=== PATIENT | female | born 2000 | race Caucasian/White ===

== ENCOUNTER 2022-06-13 09:50 | Inpatient (IN) | payer OTHER ==
[2022-06-13] MEDS ORDERED: PROMETHAZINE HCL 25 MG/1 ML VIAL IVPUSH PRN (13:19)
[2022-06-13] MEDS ORDERED: BUTORPHANOL TARTRATE 1 MG/ML VIAL IVPB PRN (13:19)
[2022-06-13 14:45] VITALS: BMI 28.1
[2022-06-13 14:56] LABS: BASO % 0.1 % (0-2.0); EOS % 0.1 % (0-4.5); HEMATOCRIT 39.2 % (32.4-45.2); HEMOGLOBIN 13.2 GM/dL (10.7-15.3); LYMPH % 11.8 % (8-40); MCH 30.5 pg (25.7-33.7); MCHC 33.7 g/dl (32.0-36.0); MEAN CELL VOLUME 90.5 fl (80-96); MEAN PLT VOLUME 9.4 fl (7.5-11.1); MONO % 5.4 % (3.8-10.2); NEUT % 82.6 % (42.8-82.8); PLATELET COUNT 184 10^3/uL (134-434); RBC 4.33 M/mm3 (3.60-5.2); RDW 13.5 % (11.6-15.6); WHITE BLOOD COUNT 9.4 K/mm3 (4.0-10.0)
[2022-06-13 15:03] LABS: INR 0.87 (0.83-1.09)
[2022-06-13 15:06] LABS: ACTIVATED PTT 30.5 SECONDS (25.2-36.5)
[2022-06-13] MEDS: ELECTROLYTE-148 SOLN 1,000 ML IV SCH (16:00)
[2022-06-13] MEDS ORDERED: BUTORPHANOL TARTRATE 2 MG/ML VIAL ONE (18:24)
[2022-06-13] MEDS ORDERED: PROMETHAZINE HCL 25 MG/1 ML VIAL ONE (18:25)
[2022-06-14] MEDS ORDERED: FENTANYL/BUPIVACAINE/NS/PF - PCEA - 50 ML DISP.SYRIN EP ONE ×3 (00:08→09:33)
[2022-06-14] MEDS ORDERED: NALOXONE HCL 0.4 MG/ML VIAL IVPUSH PRN (00:13)
[2022-06-14] MEDS ORDERED: BUPIVACAINE HCL/PF 0.25% (2.5MG/ML) 10 ML VIAL ONE (00:18)
[2022-06-14] MEDS: FENTANYL/BUPIVACAINE/NS/PF - PCEA - 50 ML DISP.SYRIN EP SCH ×2 (00:45→05:30)
[2022-06-14] MEDS: ELECTROLYTE-148 SOLN 1,000 ML IV SCH (04:30)
[2022-06-14 07:31] LABS: CALCIUM 8.4 mg/dL (8.5-10.1)
[2022-06-14 07:34] LABS: CREATININE 0.6 mg/dL (0.55-1.3)
[2022-06-14] MEDS ORDERED: OXYTOCIN 30 UNITS in 0.9% NS 30 UNIT/500 ML INFUS.BAG IVPB ONE (07:58)
[2022-06-14] MEDS ORDERED: OXYTOCIN 30 UNITS in 0.9% NS 30 UNIT/500 ML INFUS.BAG IVPB SCH (09:00)
[2022-06-14] MEDS ORDERED: OXYTOCIN 20 UNITS in 0.9% NS 20 UNIT/1,000 ML INFUS.BAG IV ONE (10:09)
[2022-06-14] MEDS ORDERED: WITCH HAZEL 50% (TUCKS) 40 PAD/JAR PAD TP PRN (11:37)
[2022-06-14] MEDS ORDERED: METHYLERGONOVINE MALEATE 0.2 MG/1 ML AMP IM PRN (11:37)
[2022-06-14] MEDS ORDERED: oxyCODONE HCL 5 MG TABLET PO PRN (11:37)
[2022-06-14] MEDS ORDERED: BENZOCAINE 28 GM HEMORRHOIDAL OINTMENT TP PRN (11:37)
[2022-06-14] MEDS ORDERED: BENZOCAINE 20% 57 GM BOTTLE TP PRN (11:37)
[2022-06-14] MEDS ORDERED: BISACODYL 10 MG SUPP.RECT RC PRN (11:37)
[2022-06-14] MEDS ORDERED: OXYTOCIN 20 UNITS in 0.9% NS 20 UNIT/1,000 ML INFUS.BAG IV SCH (11:45)
[2022-06-14] MEDS: FERROUS SO4 325 MG TABLET (FP) PO SCH ×2 (12:56→18:36)
[2022-06-14] MEDS: IBUPROFEN 600 MG TABLET (FP) PO PRN ×2 (14:56→20:49)
[2022-06-15 07:13] LABS: BASO % 0.1 % (0-2.0); EOS % 1.3 % (0-4.5); HEMATOCRIT 31.8 % (32.4-45.2); HEMOGLOBIN 10.7 GM/dL (10.7-15.3); LYMPH % 14.9 % (8-40); MCH 30.4 pg (25.7-33.7); MCHC 33.7 g/dl (32.0-36.0); MEAN PLT VOLUME 9.8 fl (7.5-11.1); NEUT % 76.7 % (42.8-82.8); PLATELET COUNT 147 10^3/uL (134-434); RBC 3.53 M/mm3 (3.60-5.2); RDW 13.8 % (11.6-15.6); WHITE BLOOD COUNT 10.6 K/mm3 (4.0-10.0)
[2022-06-15] MEDS: FERROUS SO4 325 MG TABLET (FP) PO SCH ×3 (08:12→17:57)
[2022-06-15] MEDS: ACETAMINOPHEN 325 MG TABLET (FP) PO PRN ×3 (08:14→22:01)
[2022-06-15] MEDS: PRENATAL VITAMINS W/ FOLIC ACID TABLET (FP) PO SCH (10:34)
[2022-06-15] MEDS ORDERED: SENNOSIDES/DOCUSATE COMBO (SENNA PLUS) TABLET (UD) PO PRN (22:00)
[2022-06-15 23:18] VITALS: RESP 18
[2022-06-16] MEDS: IBUPROFEN 600 MG TABLET (FP) PO PRN (05:28)
[2022-06-16] MEDS: FERROUS SO4 325 MG TABLET (FP) PO SCH ×2 (08:36→12:40)
[2022-06-16 09:42] VITALS: BP 123/76; PULSE 83; TEMP 98.3
[2022-06-16] MEDS: PRENATAL VITAMINS W/ FOLIC ACID TABLET (FP) PO SCH (10:25)
== END 2022-06-16 14:35 | disposition home or self-care (01) | DRG 560 ==
LOC: JDEL 09:50 → JLDR 13:00 → J3W 06-14 12:30
PROVIDERS: ADMIT Obstetrics & Gynecology; ATTEND Obstetrics & Gynecology
PROC: 0KQM0ZZ Repair Perineum Muscle, Open Approach (ICD-10-PCS; principal; 2022-06-14)
PROC: 10E0XZZ Delivery of Products of Conception, External Approach (ICD-10-PCS; 2022-06-14)
DX: O70.1 Second degree perineal laceration during delivery (principal); Z3A.39 39 weeks gestation of pregnancy; Z37.0 Single live birth
CPT/HCPCS: 36415; 59025; 59409; 80048; 85025; 85610; 85730; 86780; 86850; 86900; 86901; C9803-CS; U0003; U0005

== ENCOUNTER 2024-09-09 13:18 | Emergency (ER) | payer OTHER ==
[2024-09-09 13:31] VITALS: BP 125/81; PULSE 91; RESP 16; TEMP 98.2; BMI 28.5
[2024-09-09 16:18] LABS: EPI CELLS 32 /uL (0-25.1); HYALINE CASTS 1 /uL (0-3.1); PH,URINE 7.5 (5.0-8.0); URINE APPEARANCE TURBID; URINE BACTERIA 1584 /uL (0-1359); URINE BILIRUBIN NEGATIVE (NEGATIVE); URINE COLOR YELLOW; URINE GLUCOSE (UA) NEGATIVE (NEGATIVE); URINE KETONE NEGATIVE (NEGATIVE); URINE LEUK ESTERASE 2+ (NEGATIVE); URINE NITRITE NEGATIVE (NEGATIVE); URINE PROTEIN NEGATIVE (NEGATIVE); URINE UROBILINOGEN 0.2 mg/dL (0.2-1.0); URINE WBC 40 /uL (0-25.8)
[2024-09-09 16:21] LABS: INR 1.04 (0.83-1.09); PROTHROMBIN TIME (PATIENT) 11.9 SEC (9.7-13.0)
[2024-09-09 16:24] LABS: ACTIVATED PTT 32.6 SECONDS (25.2-36.5)
[2024-09-09 16:26] LABS: BASO % 0.3 % (0-2.0); EOS % 0.7 % (0-4.5); HEMATOCRIT 39.6 % (32.4-45.2); HEMOGLOBIN 12.9 GM/dL (10.7-15.3); LYMPH % 24.3 % (8-40); MCH 27.8 pg (25.7-33.7); MCHC 32.6 g/dl (32.0-36.0); MEAN CELL VOLUME 85.2 fl (80-96); MEAN PLT VOLUME 8.5 fl (7.5-11.1); MONO % 6.3 % (3.8-10.2); NEUT % 68.4 % (42.8-82.8); PLATELET COUNT 237 10^3/uL (134-434); RBC 4.65 M/mm3 (3.60-5.2); RDW 14.1 % (11.6-15.6); WHITE BLOOD COUNT 7.9 K/mm3 (4.0-10.0)
[2024-09-09 16:34] LABS: POTASSIUM 4.2 mmol/L (3.5-5.1)
[2024-09-09 16:36] LABS: CALCIUM 9.2 mg/dL (8.5-10.1)
[2024-09-09 16:37] LABS: ALBUMIN 3.6 g/dl (3.4-5.0); BLOOD UREA NITROGEN 9.4 mg/dL (7-18)
[2024-09-09 16:40] LABS: CREATININE 0.5 mg/dL (0.55-1.3)
[2024-09-09 16:41] LABS: BILIRUBIN,TOTAL 0.3 mg/dL (0.2-1); TOT PROT 7.1 g/dl (6.4-8.2)
[2024-09-09 17:34] LABS: URINE RBC 53 /uL (0-23.9)
[2024-09-09 17:35] LABS: URINE CRYSTALS PRESENT /hpf; YEAST NONE SEEN (NEGATIVE)
[2024-09-09 18:10] LABS: HIV INTERPRETATION NEGATIVE (NEGATIVE)
[2024-09-09] MEDS ORDERED: CEPHALEXIN MONOHYDRATE 500 MG CAPSULE (UD) ONE (18:53)
[2024-09-09] MEDS: CEPHALEXIN MONOHYDRATE 500 MG CAPSULE (UD) PO ONE (18:55)
== END 2024-09-09 20:52 | disposition home or self-care (01) ==
LOC: JER 13:18
DX: O02.1 Missed abortion (principal)
CPT/HCPCS: 36415; 76817-TC; 80053; 81003; 84702; 84703; 85025; 85610; 85730; 86803; 86850; 86900; 86901; 87086; 87389; 87491; 87591; 87661; 99284-25